=== PATIENT | male | born 1945 | race Two or more races ===

== ENCOUNTER → 2017-11-10 | Emergency (ER) | payer OTHER ==
[~2017-11-10] VITALS: Ht 182.9 cm; Wt 93.4 kg
[~2017-11-10] MED LIST: ALLEGRA ALLERG180 MG PO; ASA81 MG PO; ASPIR 8181 MG PO; GABAPENTIN400 MG PO; GLUMETZA1000 MG PO; LEVOTHROID75 MCG PO; LEVSIN/SL0.125 MG PO; MELOXICAM15 MG PO; METFORMIN HCL1000 M1 PO; NABUMETONE500 MG PO; NEURONTIN300 MG; NORVASC10 MG; PERCOCET 5/3251 TAB PO; PRAMIPEXOLE0.125 MG PO; PROTONIX40 MG PO; SIMVASTATIN80 MG; SIMVASTATIN80 MG PO; TENORMIN50 MG PO; [UNRECOGNIZED DRUG - OTHER]; [UNRECOGNIZED DRUG - OTHER] PO; [UNRECOGNIZED DRUG - OTHER] PO
== END | disposition home or self-care (01) ==
LOC: ER 12:10 → CPU-OBS 12:33 → ER 12:33
DX: R07.89 Other chest pain (principal); J06.9 Acute upper respiratory infection, unspecified; J11.1 Influenza due to unidentified influenza virus with other respiratory manifestations

== ENCOUNTER 2018-12-16 11:36 | Emergency (ER) | payer OTHER ==
[~2018-12-16] VITALS: Ht 182.9 cm; Wt 98.9 kg
== END 2018-12-16 15:41 | disposition home or self-care (01) ==
LOC: ER 11:36
DX: R07.89 Other chest pain (principal); F41.1 Generalized anxiety disorder

== ENCOUNTER 2019-04-02 09:46 | Outpatient (CLI) | payer OTHER | END 2019-04-02 09:48 | disposition home or self-care (01) | LOC: NUCLEAR 09:46 | DX: I20.9 Angina pectoris, unspecified (principal) | CPT/HCPCS: 78452; 93017; A9500; J0153 ==

== ENCOUNTER 2019-10-22 13:30 | Outpatient (CLI) | payer OTHER | END 2019-10-22 14:57 | disposition home or self-care (01) | LOC: RAD 13:30 | DX: J44.1 Chronic obstructive pulmonary disease with (acute) exacerbation (principal) ==

== ENCOUNTER 2020-07-28 09:00 | Outpatient (CLI) | payer OTHER | END 2020-07-28 09:09 | disposition home or self-care (01) | LOC: NUCLEAR 09:00 | PROVIDERS: ATTEND Internal Medicine | DX: I73.9 Peripheral vascular disease, unspecified (principal); I87.2 Venous insufficiency (chronic) (peripheral) ==

== ENCOUNTER 2020-08-02 08:28 | Outpatient (CLI) | payer OTHER | END 2020-08-02 08:51 | disposition home or self-care (01) | LOC: NUCLEAR 08:28 | PROVIDERS: ATTEND Internal Medicine | DX: I87.2 Venous insufficiency (chronic) (peripheral) (principal); I73.9 Peripheral vascular disease, unspecified ==

== ENCOUNTER 2021-03-20 07:10 | Outpatient (CLI) | payer OTHER ==
[2021-05-31] MEDS ORDERED: TIROSINT100 MCG PO (07:26)
[2021-05-31] MEDS ORDERED: PLAVIX75 MG PO (07:26)
== END 2021-03-20 07:20 | disposition home or self-care (01) ==
LOC: SONOGRAMA 07:10 → MAMO-SONO 07:15 → SONOGRAMA 07:20
PROVIDERS: ATTEND Internal Medicine
DX: R10.9 Unspecified abdominal pain (principal); K76.0 Fatty (change of) liver, not elsewhere classified

== ENCOUNTER 2021-04-18 00:36 | Emergency (ER) | payer OTHER ==
[~2021-04-18] VITALS: Ht 182.9 cm; Wt 94.3 kg
[2021-05-31] MEDS ORDERED: PLAVIX75 MG PO (07:26)
[2021-05-31] MEDS ORDERED: TIROSINT100 MCG PO (07:26)
== END 2021-04-18 09:50 | disposition home or self-care (01) ==
LOC: ER 00:36
DX: R10.11 Right upper quadrant pain (principal)

== ENCOUNTER 2021-05-25 10:05 | Outpatient (CLI) | payer OTHER ==
[2021-05-31] MEDS ORDERED: PLAVIX75 MG PO (07:26)
[2021-05-31] MEDS ORDERED: TIROSINT100 MCG PO (07:26)
== END 2021-05-25 10:12 | disposition home or self-care (01) ==
LOC: RAD 10:05
PROVIDERS: ATTEND Internal Medicine
DX: J44.1 Chronic obstructive pulmonary disease with (acute) exacerbation (principal)

== ENCOUNTER 2021-05-25 10:55 | Outpatient (CLI) | payer OTHER ==
[2021-05-31] MEDS ORDERED: PLAVIX75 MG PO (07:26)
[2021-05-31] MEDS ORDERED: TIROSINT100 MCG PO (07:26)
== END 2021-05-25 10:56 | disposition home or self-care (01) ==
LOC: EKG 10:55 → LAB 10:55
PROVIDERS: ATTEND Surgery
DX: I10 Essential (primary) hypertension (principal)

== ENCOUNTER → 2021-06-07 09:17 | Outpatient (CLI) | payer OTHER ==
[~2021-06-07 09:17] MED LIST changes: +PERCOCET 5-3251 EACH PO; +PLAVIX75 MG PO; +PRILOSEC OTC20 MG PO; +TIROSINT100 MCG PO
== END | disposition home or self-care (01) ==
LOC: LAB 09:17
PROVIDERS: ATTEND Surgery
DX: Z03.818 Encounter for observation for suspected exposure to other biological agents ruled out (principal); Z11.59 Encounter for screening for other viral diseases; Z20.822 Contact with and (suspected) exposure to COVID-19

== ENCOUNTER 2021-06-09 07:48 | Day surgery (SDC) | payer OTHER ==
[~2021-06-09 07:48] MED LIST changes: -PERCOCET 5-3251 EACH PO; -PRILOSEC OTC20 MG PO
[2021-06-09] MEDS ORDERED: PERCOCET 5-3251 EACH PO (15:01)
[2021-06-09] MEDS ORDERED: PRILOSEC OTC20 MG PO (15:01)
== END 2021-06-09 21:45 | disposition home or self-care (01) ==
LOC: CIR.AMB 07:48
PROVIDERS: ATTEND Surgery
DX: K81.1 Chronic cholecystitis (principal); Z20.822 Contact with and (suspected) exposure to COVID-19

== ENCOUNTER 2022-01-24 11:17 | Outpatient (CLI) | payer OTHER ==
[~2022-01-24 11:17] MED LIST changes: +PERCOCET 5-3251 EACH PO; +PRILOSEC OTC20 MG PO
== END 2022-01-24 11:23 | disposition home or self-care (01) ==
LOC: RAD 11:17
PROVIDERS: ATTEND Internal Medicine
DX: M54.17 Radiculopathy, lumbosacral region (principal); M54.2 Cervicalgia

== ENCOUNTER 2022-03-22 12:02 | Outpatient (CLI) | payer OTHER | END 2022-03-22 12:07 | disposition home or self-care (01) | LOC: RAD 12:02 | PROVIDERS: ATTEND Physical Medicine & Rehabilitation | DX: M17.11 Unilateral primary osteoarthritis, right knee (principal); M17.2 Bilateral post-traumatic osteoarthritis of knee; M54.50 Low back pain, unspecified ==

== ENCOUNTER 2022-04-04 07:46 | Outpatient (CLI) | payer OTHER | END 2022-04-04 07:47 | disposition home or self-care (01) | LOC: SONOGRAMA 07:46 | PROVIDERS: ATTEND Internal Medicine | DX: K21.9 Gastro-esophageal reflux disease without esophagitis (principal) ==

== ENCOUNTER 2024-05-20 10:07 | Outpatient (CLI) | payer OTHER | END 2024-05-20 10:19 | disposition home or self-care (01) | LOC: MRI 10:07 | PROVIDERS: ATTEND Internal Medicine | DX: M25.561 Pain in right knee (principal); M25.562 Pain in left knee | CPT/HCPCS: 73721 ==